=== PATIENT | female | born 1995 | race Caucasian/White ===

== ENCOUNTER 2016-08-28 20:32 | Emergency (ER) | payer OTHER ==
[~2016-08-28] VITALS: Ht 160 cm; Wt 63.6 kg
[~2016-08-28 20:32] MED LIST: FAMO40TA72 PO
[2016-08-28 20:35] VITALS: BP 126/59; PULSE 71; RESP 16; O2SAT 100
--- NOTE | 2016-08-28 22:55 | ED.REPORT ---
HPI-Back Pain Under 40 Date of Service Aug 28, 2016 ED Provider: Aric Prince MD A 21 year old female with a history of frequent ED visits for pain-related complaints presents with worsening lower back pain onset this morning. The pain radiates up her back and down her right leg, making ambulation difficult. The patient denies fever, numbness, weakness, incontinence, dysuria, or other symptoms. She has had similar symptoms in the past, although generally less severe. The patient took Naproxen at 1000 this morning. Nursing Notes Stated Complaint: LOW BACK PAIN Chief Complaint: Back Pain or Injury Nursing Notes Reviewed: Yes Allergies: Coded Allergies: hydrocodone (Verified Allergy, Severe, Anaphylaxis, 08/28/16) Sulfa (Sulfonamide Antibiotics) (Verified Allergy, Unknown, FAMILY ANAPHLACTIC, 08/28/16) hydrocodone bitartrate (Verified Allergy, Unknown, 08/28/16) Scheduled Famotidine (Pepcid) 40 Mg Tablet 40 MG PO QPM Scheduled PRN Cyclobenzaprine (Cyclobenzaprine) 10 Mg Tablet 10 MG PO TID PRN PRN Spasm Naproxen (Naproxen) 500 Mg Tab 500 MG PO BID PRN PRN For Pain General Time Seen by MD: 22:50 Chief Complaint Lumbar pain Hx Obtained From: Patient Arrived By: Walk-in Sudden in Onset?: No Onset Occurred: 9 - 12 hours ago Symptom Duration: Since onset Caused by: Spontaneous/no mechanism Location: : Spinal lumbar area Quality: Painful Severity: Current: Moderate Severity: Maximum: Moderate Associated with: Denies: Incontinence bladder, Incontinence bowel, Numbness both low ext, Weakness both lower ext Pertinent Negative: Relieved by nothing Recent Healthcare: No recent doctor visit Similar Sx Previous: Yes Past Medical History Past Medical History Notes: Numerous ED visits with pain related complaints Past Medical History Denies Past Surgical History Butler teeth removal dre removed from lower back Family History Maternal grandmother- Migraines Smoking History Never Smoker Social History Alcohol Use: Denies alcohol use Drug Use: Denies drug use Other Social History: Good social support, Local resident Occupation Works at local shelter Ambulatory Status Independent Review of Systems The patient is on control pills and has spotting Constitutional: Denies: Fever Respiratory: Denies: Non-productive cough, Shortness of breath GI: Denies: Diarrhea, Vomiting Female: Denies: Dysuria Musculoskeletal: Reports: Back pain, Extremity pain (Right leg) Neurologic: Reports: Problem walking, Denies: Bladder dysfunction, Bowel dysfunction, Numbness, Weakness Complete sys rev & neg: except as marked. Physical Exam Initial Vital Signs Vital Signs (First) Date Time Temp Pulse Resp B/P Pulse Ox O2 Delivery O2 Flow Rate FiO2 08/28/16 20:35 36.0 71 16 126/59 100 Room Air Initial VS: Reviewed Head / Eyes: Atraumatic, Normocephalic Skin: Warm, Dry Psychiatric: Mood/affect normal, Behavior normal, Normal thought content General/Constitutional: Awake, Alert Back: Atraumatic Flank / Spine / Paraspinal: Positive: Flank tender R, Lumbar spine tender... Muscle Spasm / ROM: Positive: Lumbar area spasm Straight Leg Raise: Positive: Strt leg raise + R 20 deg No step-off Left straight leg raise negative Neurologic: Oriented X3, Speech NL, No motor deficits, No sensory deficits Feet flexion and extension 5/5 strength Lower Extremity / Pelvis / MS: Neurologic intact, Vascular intact Interpretation & Diagnostics URINE DIPSTICK: 1.020 sp gravity 5 pH Trace Protein Normal Glucose 1mg/dl Urobilinogen + Bilirubin ~50 Robbie/ml Occult Blood Otherwise Negative Lab Results Interpretation Test 08/28/16 23:25 Hold Urine Received (Received) Re-Eval/Medical Decision Source of Hx: Old records Re-Evaluation/Progress : Time of Eval: 23:15 Patient Status: Condition improved Re-Evaluation/Progress Note: Discussed with patient lab results, diagnosis, and plan for discharge. Follow-up and return to the ER instructions given. Patient agrees with plan for care and all questions were addressed. Counseled Regarding: Diagnosis, Lab results, Need for follow-up, When/why to return to ED Discharge & Departure Impression: Primary Impression: Low back pain Chronicity: acute Back pain laterality: right Sciatica presence: with sciatica Sciatica laterality: sciatica of right side Qualified Code: M54.41 - Lumbago with sciatica, right side Disposition: Home All VS Reviewed: Yes Condition: Improved Patient Instructions: Acute Low Back Pain (ED) Additional Instructions: Use naproxen twice daily for pain. May also use cyclobenziprine muscle rleaxer. Ice to sore areas, keep ice wrapped in cloth, remove after 10-15 minutes, can do this several times a day. activity as tolerated, no lifting > 20 pounds or bending from the waist. follow up with primary care lucero- call them tomorrow. return to ED for fevers, problems with bowel or bladder control. Referrals: Sherry Jerry MD (PCP) [place] Attestation Portions of this note were transcribed by Maria Isabel Fan. I, Dr. Prince, personally performed the history, physical exam, and medical decision-making; I reviewed and confirmed the accuracy of the information in the transcribed note. Signed by: Nancy Montoya, 08/29/2016, 00:40 copies to: Sherry Jerry MD, Donald L MD Aug 28, 2016 22:55 MARIA ISABEL FAN Aug 28, 2016 23:02
[2016-08-28] MEDS ORDERED: Ketorolac 30 mg/mL 2 mL Inj IM ONE (23:05)
[2016-08-28] MEDS ORDERED: oxyCODONE-Acetamin 5-325 mg Tablet PO ONE (23:05)
[2016-08-28] MEDS ORDERED: CYCL10TA9 PO (23:30)
[2016-08-28] MEDS ORDERED: NPR500T PO (23:32)
[2016-08-28 23:57] VITALS: BP 103/64; PULSE 64; RESP 16; O2SAT 100
== END 2016-08-28 23:57 | disposition home or self-care (01) ==
LOC: SED 20:32
DX: M54.41 Lumbago with sciatica, right side (principal); Z88.5 Allergy status to narcotic agent; Z88.2 Allergy status to sulfonamides
CPT/HCPCS: 96372; 99284; J1885

== ENCOUNTER 2017-02-19 20:35 | Emergency (ER) | payer OTHER ==
[~2017-02-19] VITALS: Ht 162.6 cm; Wt 63.6 kg
[~2017-02-19 20:35] MED LIST changes: +CYCL10TA9 PO; +NPR500T PO
[2017-02-19 20:38] VITALS: BP 105/53; PULSE 86; RESP 16; O2SAT 97
[2017-02-19 21:11] LABS: BASOPHILS % (AUTO) 0.3 % (0-3); Mean Corpuscular Hemoglobin 31.7 pg (27.0-35.0); Mean Corpuscular Volume 89.5 fL (81-100); NEUTROPHILS % (AUTO) 50.2 % (40-74); Platelet Count 297 bil/L (150-400)
[2017-02-19 21:30] LABS: Magnesium 1.9 mg/dL (1.6-2.6)
--- NOTE | 2017-02-19 22:25 | ED.REPORT ---
HPI-Abd Pain F Under 40 Date of Service Feb 19, 2017 ED Provider: Daniel Khanna DO This is a 21-year-old female with no known past medical history presents to the emergency department for abdominal pain. Patient notes epigastric abdominal pain which started about 5 days ago and has noticed worsening of the pain which she notes as squeezing 8/10 starting today. She has no radiation of the pain. She has nausea associated with food without any vomiting. She denies fevers, chills, chest pain, shortness of breath, urinary urgency frequency or dysuria. She does note some loose stools 2 times per day. Patient notes last menstrual period was 2 weeks ago. She is in a sexual relationship and denies being . Denies vaginal discharge or any history of STD. Nursing Notes Stated Complaint: ABDOMINAL PAIN Chief Complaint: Female Abdominal Pain Nursing Notes Reviewed: Yes Allergies: Coded Allergies: hydrocodone (Verified Allergy, Severe, Anaphylaxis, 02/19/17) Sulfa (Sulfonamide Antibiotics) (Verified Allergy, Unknown, FAMILY ANAPHLACTIC, 02/19/17) hydrocodone bitartrate (Verified Allergy, Unknown, 02/19/17) Scheduled Famotidine (Pepcid) 40 Mg Tablet 40 MG PO QPM Omeprazole (Omeprazole) 40 Mg Capsule.dr 40 MG PO DAILY Scheduled PRN Cyclobenzaprine (Cyclobenzaprine) 10 Mg Tablet 10 MG PO TID PRN PRN Spasm Naproxen (Naproxen) 500 Mg Tab 500 MG PO BID PRN PRN For Pain General Time Seen by MD: 21:24 Chief Complaint Abdominal pain Past Medical History Past Medical History Notes: Numerous ED visits with pain related complaints Past Medical History Denies Past Surgical History Glennie teeth removal dre removed from lower back Family History Maternal grandmother- Migraines Smoking History Never Smoker Social History Alcohol Use: Denies alcohol use Drug Use: Denies drug use Other Social History: Good social support, Local resident Occupation Works at local [employer] Ambulatory Status Independent Review of Systems Constitutional: Denies: Chills, Fever Respiratory: Denies: Non-productive cough, Shortness of breath Cardiovascular: Denies: Chest pain GI: Reports: Abdominal pain, Diarrhea (loose stools 2x per day), Nausea, Denies: Vomiting Female: Denies: Dysuria, Pelvic pain, , Urinary frequency, Urinary urgency Musculoskeletal: Denies: Back pain Complete sys rev & neg: except as marked. Physical Exam Initial Vital Signs Vital Signs (First) Date Time Temp Pulse Resp B/P Pulse Ox O2 Delivery O2 Flow Rate FiO2 02/19/17 20:38 37.1 86 16 105/53 97 Room Air Initial VS: Reviewed Head / Eyes: Atraumatic, Normocephalic ENT: Mucous membranes moist, Conjunctiva normal, No scleral icterus Extremities: Vascular intact, Neuro intact, No swelling Skin: Warm, Dry, No cyanosis Neurologic: Alert, Oriented, Nonfocal Psychiatric: Mood/affect normal, Behavior normal, Normal thought content General/Constitutional: Awake, Alert, No acute distress, Well appearing, Not toxic appearing Respiratory / Chest: Atraumatic, Breath sounds NL, Breath sounds = bilat, No respiratory distress, No rales, No rhonchi, No wheezing Cardiovascular: Heart rate NL, Regular rhythm, Heart sounds NL, No murmurs Abdomen: Atraumatic, Soft, McBurney's non-tender, No guarding, No rebound, BS normoactive Tenderness/Guarding/Rebound: Positive: Tender epigastric Back: Atraumatic, Inspection NL, No CVA tenderness Interpretation & Diagnostics Right upper quadrant abdominal ultrasound Normal hepatic echogenicity and size. The liver measures 14.7 cm in length. No focal liver lesions seen. No biliary ductal dilation. The common bile duct is 4.2 mm in diameter. The gallbladder is contracted. No gallstones, gallbladder wall thickening or pericholecystic fluid. Gallbladder wall thickness of 1.9 mm. Negative sonographic Lomas sign. Normal appearance of the pancreas without focal lesions. Normal right renal size and echogenicity. The right kidney is 10.1 cm in length. No cyst, masses, hydronephrosis or nephrolithiasis seen. No free fluid in the regions imaged. CONCLUSION: Unremarkable right upper abdominal ultrasound. Lab Results Interpretation Result Diagram: 02/19/17205202/19/172052 Test 02/19/17 20:53 02/19/17 23:02 White Blood Count 7.3th/mm3 (3.8-10.1) Red Blood Count 4.10mil/mm3 (3.90-5.20) Hemoglobin 13.0g/dL (12.0-15.6) Hematocrit 36.7% (35.0-46.0) Mean Corpuscular Volume 89.5fL (81-100) Mean Corpuscular Hemoglobin 31.7pg (27.0-35.0) Mean Corpuscular Hemoglobin Concent 35.4% (32.0-37.0) Red Cell Distribution Width 11.3% (12.3-15.4) Platelet Count 297bil/L (150-400) Neutrophils (%) (Auto) 50.2% (40-74) Lymphocytes (%) (Auto) 42.5% (14-46) Monocytes (%) (Auto) 6.0% (4-12) Eosinophils (%) (Auto) 1.0% (0-5) Basophils (%) (Auto) 0.3% (0-3) Sodium Level 138mEq/L (134-144) Potassium Level 3.6mEq/L (3.5-5.2) Chloride Level 103mEq/L (97-108) Carbon Dioxide Level 20mmol/L (18-29) Blood Urea Nitrogen 5mg/dL (6-20) Creatinine 0.66mg/dL (0.57-1.00) Estimat Glomerular Filtration Rate 162mL/min (>59) Glucose Level 98mg/dL (60-99) Calcium Level 9.1mg/dL (8.5-10.1) Magnesium Level 1.9mg/dL (1.6-2.6) Total Bilirubin 0.4mg/dL (0.0-1.2) Aspartate Amino Transf (AST/SGOT) 22U/L (0-50) Alanine Aminotransferase (ALT/SGPT) 35U/L (0-32) Alkaline Phosphatase 47U/L (25-150) Total Protein 6.8g/dL (6.4-8.4) Albumin 4.3g/dL (3.4-5.0) Lipase 39U/L (13-60) Hold Escobedo Top Tube Received (Received) Urine Color Straw (YELLOW) Urine Appearance Clear (CLEAR,HAZY) Urine pH 6.5 (5.0-8.0) Urine Specific Morton 1.010 (1.003-1.035) Urine Protein Negativemg/dL (NEG,TRACE) Urine Glucose (UA) Negativemg/dL (NEGATIVE) Urine Ketones Negativemg/dL (NEGATIVE) Urine Occult Blood Trace (NEGATIVE) Urine Nitrite Negative (NEGATIVE) Urine Bilirubin Negative (NEGATIVE) Urine Urobilinogen Normalmg/dL (NORMAL) Urine Leukocyte Esterase Negative (NEGATIVE) Urine RBC 0-2/hpf (0-2) Urine WBC 0-5/hpf (0-5) Urine Epithelial Cells Moderate/hpf (NONE-MOD) Urine Crystals None seen (NONE SEEN) Urine Bacteria Few/hpf (NONE-FEW) Urine Hyaline Casts None/lpf (NONE) Urine Granular Casts None seen (NONE SEEN) Urine Waxy Casts None seen (NONE SEEN) Urine Red Blood Cell Casts None seen (NONE SEEN) Urine White Blood Cell Casts None seen (NONE SEEN) Urine Mucus Present (None Seen) Urine Trichomonas None seen (NONE SEEN) Urine Yeast None (NONE SEEN) Urinalysis Comment None Urine Culture Reflexed Not indicated Re-Eval/Medical Decision Med Decision/Clinical Course This is a 21-year-old female with no known past medical history presents to the emergency department for epigastric pain for the last 5 days that worsened today. Concern is for differential includes cholecystitis, pancreatitis, peptic ulcer disease, tubal ovarian abscess, ectopic , kidney stone, UTI, appendicitis. She is afebrile and nontoxic appearing. Patient has moderate tenderness in the epigastric region with negative Lomas's sign and McBurney's point. Urine test is negative. CBC, CMP, lipase are unremarkable. Abdominal ultrasound right upper quadrant showed contracted gallbladder, however , no evidence of cholecystitis and pancreatitis, hydronephrosis. Patient was given ibuprofen with some relief of her pain. There did not appear to be an emergent process for her pain. Since pain did improve with ibuprofen and patient vitals are stable and labs are unremarkable patient was discharged. Patient also given Protonix and GI cocktail here before discharge as this may be due to gastritis. If this is helpful for her symptoms she was instructed to follow up with her primary care provider in one to 2 weeks. If her pain starts to worsen or is unresolved with the GI cocktail and Protonix she should return in 24 hours to the emergency department for CT scan for further evaluation of GI process including diverticulitis. Counseled Regarding: Diagnosis, Lab results, Need for follow-up, When/why to return to ED Discharge & Departure Shift Change Sign-Out Response to Therapy: Improved Primary Impression: Abdominal pain Abdominal location: epigastric Qualified Code: R10.13 - Epigastric pain Disposition: Home Discharge Condition All VS Reviewed: Yes Condition: Stable Patient Instructions: Abdominal Pain (ED) Additional Instructions: In the emergency department you were evaluated for your abdominal pain with blood work, urine analysis and ultrasound. Based off all of this there is no signs of infection or any indication of any emergent process going on with their gallbladder or pancreas. Take tylenol and prilosec as needed to help with the pain. If your pain does not improve and starts to worsen in the next 24 hours, return back to the emergency department. If you do have some improvement in her pain, follow-up with her primary care provider in the next 1- 2 weeks. If you start to develop fevers and chills, pain with urination, vaginal discharge return to the emergency department. Referrals: Sherry Jerry MD (PCP) Griselda Koenig MD (Family) Attending Statment I personally took a history performed a physical examination I concur with the assessment and plan. In my evaluation abdomen is soft and not at all tender. Her symptoms are most likely consistent with gastritis. Acute cholecystitis and pancreatitis have been ruled out. Ruptured ectopic is ruled out. I think she will do fine with conservative treatment. Do recommend close outpatient follow-up Eugene Merlos DO Feb 19, 2017 21:55 Daniel Khanna DO Feb 20, 2017 18:23
[2017-02-19 23:39] LABS: APPEARANCE,URINE CLEAR (CLEAR,HAZY); COLOR,URINE STRAW (YELLOW); OCCULT BLOOD,URINE TRACE (NEGATIVE); PH,URINE 6.5 (5.0-8.0); UROBILINOGEN,URINE NORMAL (NORMAL)
[2017-02-19] MEDS ORDERED: Pantoprazole 40 mg ER24 Tablet PO ONE ×2 (23:45→23:55)
[2017-02-19] MEDS ORDERED: LidocaineVisc 2%:Antacid 1:1 10 mL Syringe PO ONE (23:50)
[2017-02-19] MEDS ORDERED: OMEP40CA36 PO (23:57)
[2017-02-20 00:55] VITALS: BP 122/68; PULSE 78; RESP 18; O2SAT 99
--- NOTE | 2017-02-20 11:12 | DRSVH ---
PROCEDURE: US ABDOMEN, LIMITED ([id number]) INDICATIONS: Epigastric pain, evaluate RUQ TECHNIQUE: Real-time focused scanning was performed of the abdomen, with image documentation. COMPARISON: None. FINDINGS: Limited exam demonstrating mild hepatic steatosis. Gallbladder is moderately contracted an d suboptimally visualized. No obvious stones or wall thickening. Normal appearance of the right kid nicole. IMPRESSION: 1. Increased hepatic echogenicity noted likely related to fatty infiltration of the liver but other s ources of hepatocellular disease cannot be excluded. Recommend clinical correlation. 2. Contracted gallbladder which is suboptimally visualized. No definite stones or wall thickening is seen. If indicated a repeat limited bladder ultrasound could be performed. Note: These findings are concordant with the preliminary interpretation. Dictated by: Jerald GUAJARDOA Interpreted: Justina Head MD on 02/20/2017 at 8:38 Approved by: Justina Head MD, PhD on 02/20/2017 at 11:10
== END 2017-02-20 00:58 | disposition home or self-care (01) ==
LOC: SED 20:35
DX: R10.13 Epigastric pain (principal); Z88.2 Allergy status to sulfonamides; Z88.5 Allergy status to narcotic agent